=== PATIENT | female | born 1945 | race Caucasian/White ===

== ENCOUNTER → 2018-02-21 | Outpatient (CLI) | payer MEDICARE, OTHER | LOC: M.LAB 13:37 | DX: E53.1 Pyridoxine deficiency (principal) ==

== ENCOUNTER 2018-09-07 14:56 | Inpatient (IN) | payer MEDICARE, OTHER ==
[~2018-09-07] VITALS: Ht 162.6 cm; Wt 60.3 kg
[2018-09-07 15:02] VITALS: BP 145/65
[2018-09-07] MEDS ORDERED: SPIRONOLACTONE25 MG PO (15:12)
[2018-09-07] MEDS ORDERED: CYMBALTA60 MG PO (15:12)
[2018-09-07] MEDS ORDERED: COUMADIN 3 MG TA3 M1 PO (15:13)
[2018-09-07] MEDS ORDERED: SYNTHROID88 MCG PO (15:14)
[2018-09-07] MEDS ORDERED: BUMETANIDE2 M1 PO (15:14)
[2018-09-07] MEDS ORDERED: NEURONTIN600 MG PO (15:14)
[2018-09-07] MEDS ORDERED: TOPROL XL25 MG PO (15:15)
[2018-09-07] MEDS ORDERED: KLOR-CON 1010 MEQ PO (15:15)
[2018-09-07] MEDS ORDERED: CALCIUM 500 +1 EAC5 PO (15:16)
[2018-09-07] MEDS ORDERED: HYDROCODON-ACE1 EAC5 PO (15:16)
[2018-09-07] MEDS ORDERED: ZANAFLEX2 MG PO (15:16)
[2018-09-07] MEDS ORDERED: IRON325 PO (15:17)
[2018-09-07] MEDS ORDERED: ZYRTEC10 M5 PO (15:17)
[2018-09-07] MEDS ORDERED: CRESTOR5 MG PO (15:18)
[2018-09-07] MEDS ORDERED: B12INJ IM (15:19)
--- NOTE | 2018-09-07 15:35 | NUR ---
REPORT RECEIVED FROM JOHN ANNE. THIS NURSE ASSUMED PT CARE AT THIS TIME.
[2018-09-07 15:46] LABS: ABSOLUTE BASOPHILS 0.1 thou/uL (0.0-0.2); ABSOLUTE EOSINOPHILS 0.3 thou/uL (0.0-0.7); ABSOLUTE LYMPHOCYTES 1.5 thou/uL (0.8-5.3); ABSOLUTE MONOCYTES 0.7 thou/uL (0.0-1.2); ABSOLUTE NEUTROPHILS 5.7 thou/uL (1.6-8.1); BASOPHILS 0.6 %; EOSINOPHILS 3.6 %; HEMATOCRIT 44.4 % (37.0-47.0); HEMOGLOBIN 15.1 gm/dL (12.0-15.0); LYMPHOCYTES 18.2 %; MCH 32.3 pg (26.0-34.0); MCV 95.1 fL (80.0-100.0); MONOCYTES 8.9 %; NUCLEATED RBCS 0 /100WBC; PLATELET COUNT* 257 thou/uL (150-400); POLYS 68.7 %; RBC 4.66 mil/uL (4.20-5.00); RDW-CV 13.9 % (10.5-14.5); WBC 8.3 thou/uL (4.0-11.0)
--- NOTE | 2018-09-07 15:47 | NUR ---
O2 APPLIED AT 2 LITERS DUE TO O2 SAT OF 92% ON ROOM AIR. PT O2 NOW IS 95%.
[2018-09-07 16:13] LABS: ALBUMIN 3.6 g/dL (3.4-5.0); ALKALINE PHOSPHATASE 77 U/L (46-116); ANION GAP 5 mmol/L (7-16); BUN 24 mg/dL (7-18); CALCIUM 9.5 mg/dL (8.5-10.1); CHLORIDE 102 mmol/L (98-107); CO2 33 mmol/L (21-32); CREATININE 1.7 mg/dL (0.6-1.3); GLUCOSE 98 mg/dL (70-99); NT-PRO BRAIN NAT PEPTIDE 3956 pg/mL (<300); POTASSIUM 4.2 mmol/L (3.5-5.1); SGOT 19 U/L (15-37); SGPT 18 U/L (30-65); SODIUM 140 mmol/L (136-145); TOTAL BILIRUBIN 0.4 mg/dL (<0.1-1.0); TOTAL PROTEIN 7.5 g/dL (6.4-8.2); TROPONIN-I LEVEL <0.06 ng/mL (<0.06)
[2018-09-07 16:15] LABS: APTT 52.3 Seconds (25.0-31.3); INR 2.4; PROTIME 24.2 Seconds (9.20-11.50)
--- NOTE | 2018-09-07 19:01 | NUR ---
REPORT GIVEN TO JOHN CORDOVA WHO IS TO ASSUME PT CARE AT THIS TIME.
[2018-09-07 19:56] VITALS: BP 128/73
[2018-09-07 20:00] VITALS: BP 143/65
[2018-09-08] VITALS (7 sets, daily range): BP systolic 124–171; BP diastolic 55–80
--- NOTE | 2018-09-08 05:00 | NUR ---
RECEIVED REPORT FROM FUEL OPERATOR ART AT 1925. PT ARRIVED TO UNIT VIA CART AT 194. PT AAOX4, VSS, DENIES PAIN. HOURLY ROUNDING COMPLETED. SR WITH BBB ON INSURANCE COORDINATOR. CALL LIGHT WITHIN REACH.
--- NOTE | 2018-09-08 07:40 | NUR ---
AT 0650, PT C/O SOA, O2 SAT 88% ON RA. PT PLACED ON 2L NC. PT OBSERVED TO HAVE WET COUGH, CRACKLES, AND WHEEZING. DR. PINTO NOTIFIED, NEW ORDERS RECEIVED. ONE TIME DOSE LASIX ADMINISTERED/RESPIRATORY PAGED FOR BREATHING TREATMENT. REPORT GIVEN TO CEZAR LOPEZ.
--- NOTE | 2018-09-08 11:31 | NUR ---
ASSUMED PT CARE REPORT RECEIVED FROM NURSE. PT IS AOX4 SR ON MOBILE TESTER. ON 2 L NC AND SATURATION IS 95%. VSS. PT OUT OF BED TO CHAIR. NO COMPLAINT. CALL LIGHT AT REACH. WILL CONTINUE TO MONITOR
--- NOTE | 2018-09-08 13:36 | EKG ---
[place] [address] ELECTROCARDIOGRAM REPORT Name: LIS DINERO Room: [address] ADM IN [facility].#: [id number] Admission: 09/07/18 Attend Phys: Benito Yusuf Discharge: Date of : 41 Report #: [id number] THIS REPORT FOR: //name// [facility] ED Test Date: 2018-09-07 Test Time: 15:22:44 Pat Name: LIS DINERO Department: Room: [facility] Gender: F Mailroom Associate: Jered PENNINGTON : 1945 Requested By: Ely Bermudez Order Number: [id number] MD: Ibrahima Sloan Measurements Intervals [place] Rate: 87 P: 0 DE: 164 QRS: 115 QRSD: 138 T: 20 QT: 426 QTc: 513 Interpretive Statements sinus rhythm Nonspecific intraventricular conduction delay Anterolateral infarct, old No previous ECG available for comparison Electronically Signed On 09-08-2018 13:35:59 CDT by Ibrahima Sloan [email or web address] <ELECTRONICALLY SIGNED> By: Ibrahima Sloan MD, [facility] 09/08/18 1330 1522 1522 Ibrahima Sloan MD, [facility] /EPI
[2018-09-09 04:00] VITALS: BP 157/72
[2018-09-09 05:17] LABS: CALCIUM 9.2 mg/dL (8.5-10.1); CREATININE 1.3 mg/dL (0.6-1.3); POTASSIUM 3.8 mmol/L (3.5-5.1)
--- NOTE | 2018-09-09 06:51 | NUR ---
ASSUMED PT CARE AT 1930. NURSING ASSESSMENT COMPLETED AT START OF SHIFT. COMPLIANCE REPRESENTATIVE DEALER IN PLACE, TRACING SINUS RHYTHM WITH BBB. HOURLY ROUNDING COMPLETED. VS STABLE. AFEBRILE. CALL LIGHT WITHIN REACH.
[2018-09-09 08:00] VITALS: BP 144/69
--- NOTE | 2018-09-09 10:55 | NUR ---
ASSUMED PT CARE REPORT RECEIVED FROM NURSE PT IS AOX4 SR ON GOVERNMENT AFFAIRS SPECIALIST. VSS. ON RA AND SATURATION IS 94% ON RA. IV ABX GIVEN. [facility] NO COMPLAINT WILL CONTINUE TO MONITOR
[2018-09-09 11:40] VITALS: BP 159/66
[2018-09-09 16:00] VITALS: BP 173/79
[2018-09-09 19:03] LABS: INFLUENZA A ANTIGEN None Detected (None Detect); INFLUENZA B ANTIGEN None Detected (None Detect)
[2018-09-09 20:00] VITALS: BP 150/62
[2018-09-10] VITALS: BP 147/66
[2018-09-10 04:00] VITALS: BP 163/84
[2018-09-10 04:28] LABS: PROTIME 41.9 Seconds (9.20-11.50)
[2018-09-10 04:31] LABS: INR 4.1
[2018-09-10 04:48] LABS: CALCIUM 9.6 mg/dL (8.5-10.1); CREATININE 1.4 mg/dL (0.6-1.3); POTASSIUM 4.4 mmol/L (3.5-5.1)
--- NOTE | 2018-09-10 06:40 | NUR ---
ASSUMED PT CARE AT 1930. NURSING ASSESSMENT COMPLETED AT START OF SHIFT. PT ANXIOUS, C/O SOA. O2 SAT 95% ON 2L. PT REPOSITIONED, RT PAGED FOR BREATHING TREATMENT. DR. PINTO NOTIFIED FOR ANXIETY, PT REQUEST FOR SLEEPING MEDICATION AND COUGH MEDICATION. NEW ORDERS RECEIVED. MEDICATIONS ADMINISTERED. VIDEO RECORDER MECHANIC IN PLACE, TRACING SR/V PACED ON MONITOR. HOURLY ROUNDING COMPLETED. CALL LIGHT WITHIN REACH. NEGATIVE SEPSIS SCREENING THIS SHIFT.
[2018-09-10 08:00] VITALS: BP 142/70
--- NOTE | 2018-09-10 12:16 | NUR ---
Pt is A&O. Resides at home alone. 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 Independent and active. Pt uses a cane for mobility. Hx of [facility]. No hx of SNF. Pt states that she is having and Echo today. [place]. Following for disposition.
[2018-09-10 12:40] VITALS: BP 164/74
--- NOTE | 2018-09-10 14:38 | CON ---
[facility] [address] [place] [address] CONSULTATION Name: MICHELLEKWAMELIS Real Room: [address] IN .R.#: [id number] Admission: 09/07/18 Attend Phys: Benito Yusuf Discharge: Date of : 41 Report #: [id number] THIS REPORT FOR: //name// CC: Cleveland Monte MD [facility] physician/PCP Aaron Lama DATE OF SERVICE: 09/08/2018 HISTORY OF PRESENT ILLNESS: This is a 73-year-old single white female who I was asked to see in the hospital today after she complained of being short of breath. The history is obtained from the patient as there are no old records available. The patient states that she presented about 5 years ago with atrial fibrillation. She was admitted to [facility] and was seen by Dr. Riley. She apparently was cardioverted at that time. She then developed symptomatic bradycardia and he implanted a permanent Biotronik pacemaker. She apparently underwent an ablation at that time. She was placed on amiodarone, which was subsequently discontinued. She has been chronically anticoagulated. She does have a home INR monitor. She has had no bleeding problems. She denied history of coronary artery disease, congestive heart failure. She apparently had a stress test in the past. She continues to do home transtelephonic monitoring of her pacemaker. The patient states she was doing well until the past couple of weeks. She has had cough, felt fatigued, short of breath. She is coughing up yellow phlegm. She called Dr. Monte who gave her a Z-CLARISSE. However, she continued to be short of breath and coughing. She came to the Emergency Room yesterday and was admitted. She denied any chest pain, palpitation, syncope, edema. PAST MEDICAL HISTORY: She has had previous back surgery, cholecystectomy, appendectomy. She has a history of hypertension, hyperlipidemia. No history of diabetes. MEDICATIONS: Consists of Bumex that she takes as needed, Cymbalta, Neurontin, Synthroid, metoprolol, Crestor, spironolactone, warfarin. ALLERGIES: She has intolerance to CODEINE. FAMILY HISTORY: Her father had heart disease. SOCIAL HISTORY: She is , lives by herself in [place], used to live in [place]. 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 Quit smoking 6 years ago. Occasionally drinks alcohol. REVIEW OF SYSTEMS: She has had no history of stroke, asthma, peptic ulcer disease, liver disease. She has history of chronic kidney disease, no cancer. No psychiatric illness. [place] [address] CONSULTATION Name: MICHELLELIS PUENTE Real Room: [address] IN .R.#: [id number] Admission: 09/07/18 Attend Phys: Benito Yusuf Discharge: Date of : 41 Report #: [id number] PHYSICAL EXAMINATION: GENERAL: Revealed an elderly female lying in bed. She appeared in no distress. VITAL SIGNS: She had a blood pressure of 120/80, pulse is 80, she is afebrile. HEENT: She was anicteric, pinkish conjunctivae pink. Mucous membranes moist. NECK: Veins do not appear distended. No carotid bruits. CHEST: Revealed expiratory wheezes with rhonchi in both lung huggins. CARDIAC: Regular rate and rhythm. Well-healed incision of the pacemaker in the left subclavicular area. ABDOMEN: Soft. EXTREMITIES: Had no pitting edema. Dorsalis pedis pulse 2+ bilaterally. SKIN: Warm, dry. NEUROLOGIC: Nonfocal. LYMPH: No adenopathy. MUSCULOSKELETAL: No joint effusion. LABORATORY DATA: ECG on admission showed a ventricular paced rhythm. Her underlying rhythm appears to represent atrial fibrillation. Her chest x-ray in the emergency room yesterday showed basilar bilateral infiltrates, small effusions. BUN 24, creatinine 1.7. BNP 3956. Troponin 0.06. INR 2.4. White blood cell count 8.3, hemoglobin 15.1. IMPRESSION AND RECOMMENDATIONS: 1. Bronchitis. 2. Atrial fibrillation. The patient chronically anticoagulated. 3. Status post pacemaker insertion. 4. Hypertension. The patient is on a beta haromny. 5. Hyperlipidemia. The patient is on a statin drug. 6. Chronic kidney disease. <ELECTRONICALLY SIGNED> By: Ibrahima Sloan MD, [facility] 09/10/18 1438 1029 [id number] Sloan MD, FAC /nt
[2018-09-10 17:15] VITALS: BP 145/68
--- NOTE | 2018-09-10 17:50 | NUR ---
PT AOX4 AFLUTTER ON MANAGER FINANCIAL REPORTING. ON RA FOR MOST OF THE DAY. WALKED IN HALLWAY THIS PM WITH NURSE ASSISTANCE. OXYGEN SATURATION REMAINS BETWEEN 89 AND 92 % WHILE ACTIVELY WALKING. NO COUGHING TODAY TESSALON PILL HAS BEEN GIVEN. UP TO CHAIR. IV ABX GIVEN THIS AM. ECHO, CHEST XRAY DONE DURING DAY.
[2018-09-10 20:00] VITALS: BP 180/81
[2018-09-11] VITALS: BP 168/73
[2018-09-11 04:00] VITALS: BP 149/75
[2018-09-11 05:35] LABS: PROTIME 67.3 Seconds (9.20-11.50)
[2018-09-11 05:49] LABS: INR 6.7
--- NOTE | 2018-09-11 06:49 | NUR ---
ASSUMED PT CARE AT 1930. NURSING ASSESSMENT COMPLETED AT START OF SHIFT. PT VOICED NO CONCERNS THIS SHIFT. ACID WASHER OPERATOR IN PLACE, TRACING SINUS RHYTHM/V PACED. HOURLY ROUNDING COMPLETED. CALL LIGHT WITHIN REACH.
[2018-09-11 09:04] VITALS: BP 172/76
--- NOTE | 2018-09-11 10:10 | 2DMMODE ---
[place] [address] 2 D/M-MODE ECHOCARDIOGRAM Name: BARLIS L Room: [address] IN [facility]#: [id number] Admission: 09/07/18 Attend Phys: Aaron Lama Discharge: Date of : 41 Date of Service: 09/10/18 1323 Report #: [id number] THIS REPORT FOR: //name// APPROVED REPORT Study performed: 09/10/2018 10:22:21 EXAM: Comprehensive 2D, Doppler, and color-flow Echocardiogram Patient Location: In-Patient Room #: [facility] BSA: 1.64 HR: 89 bpm BP: 142/70 mmHg Other Information Study Quality: Good Indications Atrial Fibrillation 2D Dimensions IVSd: 11.35 (7-11mm) LVOT Diam: 17.24 (18-24mm) LVDd: 37.99 mm PWd: 8.57 (7-11mm) Ascending Ao: 31.38 (22-36mm) LVDs: 26.48 (25-40mm) Aortic Root: 20.36 mm Aortic Valve AoV Peak Francis.: 1.06 m/s AO Peak Gr.: 4.46 mmHg LVOT Max P.60 mmHg AO Mean Gr.: 2.45 mmHg LVOT Mean P.36 mmHg LVOT Max V: 0.81 m/s AO V2 VTI: 21.70 cm LVOT Mean V: 0.54 m/s EMILY (VTI): 1.85 cm2 LVOT V1 VTI: 17.16 cm Mitral Valve E/A Ratio: 3.05 MV Decel. Time: 105.67 ms MV E Max Francis.: 0.87 m/s MV PHT: 30.64 ms MVA (PHT): 7.18 cm2 TDI E/Lateral E': 5.80 E/Medial E': 8.70 [place] [address] 2 D/M-MODE ECHOCARDIOGRAM Name: LIS DINERO Real Room: [address] IN [facility].#: [id number] Admission: 09/07/18 Attend Phys: Aaron Lama Discharge: Date of : 41 Date of Service: 09/10/18 1323 Report #: [id number] Medial E' Francis.: 0.10 m/s Lateral E' Francis.: 0.15 m/s Pulmonary Valve PV Peak Francis.: 0.96 m/s PV Peak Gr.: 3.65 mmHg Tricuspid Valve RAP Estimate: 5.00 mmHg TR Peak Gr.: 39.98 mmHg RVSP: 44.98 mmHg PA Pressure: 44.98 mmHg Left Ventricle The left ventricle is normal size. There is normal LV segmental wall motion. There is normal left ventricular wall thickness. Left ventricular systolic function is normal. The left ventricular ejection fraction is within the normal range. LVEF is 55-60%. The left ventricular diastolic function is normal. Right Ventricle The right ventricle is normal size. The right ventricular systolic function is normal. Pacemaker lead is present in the right ventricle. Atria Left atrium is mildly dilated. Pacemaker lead is present in the right atrium. Aortic Valve The Aortic valve is sclerotic. No aortic regurgitation is present. There is no aortic valvular stenosis. Mitral Valve The mitral valve is normal in structure. Mild mitral regurgitation. No evidence of mitral valve stenosis. Tricuspid Valve The tricuspid valve is normal in structure. Mild tricuspid regurgitation. estimated pa pressure 40 mm Hg Pulmonic Valve The pulmonary valve is normal in structure. Trace pulmonic regurgitation. Great Vessels The aortic root is normal in size. IVC is normal in size and collapses >50% [place] [address] 2 D/M-MODE ECHOCARDIOGRAM Name: LIS DINERO Room: [address] IN [facility].#: [id number] Admission: 09/07/18 Attend Phys: Aaron Lama Discharge: Date of : 41 Date of Service: 09/10/18 1323 Report #: [id number] Pericardium There is no pericardial effusion. <Conclusion> LVEF is 55-60%. Left atrium is mildly dilated. The Aortic valve is sclerotic. Mild mitral regurgitation. <ELECTRONICALLY SIGNED> By: Ibrahima Sloan MD, [facility] 09/10/18 1323 1323 1323 Ibrahima Sloan MD, FAC /INF
[2018-09-11 13:30] VITALS: BP 132/73
--- NOTE | 2018-09-11 16:30 | NUR ---
PT PROGRESSING TOWARDS GOALS THIS SHIFT. PT REPORTED TO PHYSICIAN SHE DID NOT FEEL WELL ENOUGH FOR DC HOME TODAY. ANTICIPATE DC HOME TOMORROW. PRN TYLENOL ADMINISTERED FOR HEADACHE AND CHEST WALL PAIN FROM COUGHING. PT CHANGED TO MED/SURG STATUS THIS SHIFT. NO OTHER CONCERNS AT THIS TIME. CLWR. WCTM.
[2018-09-11 17:28] VITALS: BP 156/73
[2018-09-11 20:00] VITALS: BP 144/69
[2018-09-12] VITALS: BP 150/72
[2018-09-12 05:48] LABS: PROTIME 46.8 Seconds (9.20-11.50)
[2018-09-12 05:58] LABS: INR 4.6
--- NOTE | 2018-09-12 07:16 | NUR ---
ASSUMED PT CARE AT 1930. NURSING ASSESSMENT COMPLETED AT START OF SHIFT. PT VOICED NO CONCERNS. PT MED SURG STATUS. HOURLY ROUNDING COMPLETED. PT VOICE SHE IS INTERESTED IN HAVING HOME HEALTH SET UP BEFORE DISCHARGE. CASE MANAGEMENT CONSULTED.
[2018-09-12 08:00] VITALS: BP 170/83
[2018-09-12 10:25] VITALS: BP 170/83
[2018-09-12] MEDS ORDERED: LOPRESSOR25 PO (11:56)
[2018-09-12] MEDS ORDERED: KEFLEX500 M1 PO (11:56)
[2018-09-12] MEDS ORDERED: PREDNISONE 10 M10 MG PO (11:56)
[2018-09-12 12:24] VITALS: BP 170/83
--- NOTE | 2018-09-12 12:31 | NUR ---
Pt discharging to home today, faxed HH orders to [facility] per Pt's request. Family will provide dc transportation.
[2018-09-12] MEDS ORDERED: TYLENOL325 MG PO (12:47)
[2018-09-12] MEDS ORDERED: CEPACOL SORE T1 EAC8 PO (12:48)
[2018-09-12] MEDS ORDERED: COLACE100 MG PO (12:49)
--- NOTE | 2018-09-12 15:17 | NUR ---
PT AOX4 MEDSURG STATUS. ON RA SATURATION 95%. UP AD DELPHINE. VOMIT THIS AM. ZOFRAN GIVEN. NO MORE NAUSEAUS AFTER ZOFRFAN. DISCHARGE ORDERD IN. PT TO LEAVE TO [facility] WITH HOME HEALTH. DISCHARGE INSTRUCTIONS GIVEN.PT HAS NO MORE QUESTIONS. PT LEFT UNIT AT 1520 VIA WHEELCHAIR ACCOMPANIED BY DAUGHTER IN LAW
== END 2018-09-12 12:40 | disposition home health service (06) | DRG 177 ==
LOC: M.ERS 14:56 → M.TBA-ER 16:55 → M.2W 16:55
PROVIDERS: Internal Medicine Cardiovascular Disease; Nurse Practitioner; ADMIT Internal Medicine
DX: J15.6 Pneumonia due to other Gram-negative bacteria (principal); I50.43 Acute on chronic combined systolic (congestive) and diastolic (congestive) heart failure; J44.0 Chronic obstructive pulmonary disease with (acute) lower respiratory infection; I13.0 Hypertensive heart and chronic kidney disease with heart failure and stage 1 through stage 4 chronic kidney disease, or unspecified chronic kidney disease; J44.1 Chronic obstructive pulmonary disease with (acute) exacerbation; G62.9 Polyneuropathy, unspecified; I48.91 Unspecified atrial fibrillation; E78.5 Hyperlipidemia, unspecified; J40 Bronchitis, not specified as acute or chronic; N18.9 Chronic kidney disease, unspecified; I49.5 Sick sinus syndrome; Z88.2 Allergy status to sulfonamides; Z79.899 Other long term (current) drug therapy; Z79.01 Long term (current) use of anticoagulants; Z95.0 Presence of cardiac pacemaker; Z90.89 Acquired absence of other organs; Z90.49 Acquired absence of other specified parts of digestive tract; Z87.891 Personal history of nicotine dependence; Z82.49 Family history of ischemic heart disease and other diseases of the circulatory system

== ENCOUNTER 2018-10-15 19:11 | Inpatient (IN) | payer MEDICARE, OTHER ==
[~2018-10-15] VITALS: Ht 162.6 cm; Wt 60.6 kg
[~2018-10-15 19:11] MED LIST: B12INJ IM; BUMETANIDE2 M1 PO; CALCIUM 500 +1 EAC5 PO; CEPACOL SORE T1 EAC8 PO; COLACE100 MG PO; COUMADIN 3 MG TA3 M1 PO; CRESTOR5 MG PO; CYMBALTA60 MG PO; HYDROCODON-ACE1 EAC5 PO; IRON325 PO; KEFLEX500 M1 PO; KLOR-CON 1010 MEQ PO; LOPRESSOR25 PO; NEURONTIN600 MG PO; PREDNISONE 10 M10 MG PO; SPIRONOLACTONE25 MG PO; SYNTHROID88 MCG PO; TOPROL XL25 MG PO; TYLENOL325 MG PO; ZANAFLEX2 MG PO; ZYRTEC10 M5 PO
[2018-10-15 19:29] VITALS: BP 112/54
[2018-10-15 21:22] LABS: BE -1.5 mmol/L (-2 to +3); PCO2 37.2 mmHg (35.0-45.0); PO2 70.2 mmHg (75.0-100.0); pH 7.405 (7.340-7.450)
[2018-10-15 21:29] LABS: HEMOGLOBIN 12.7 gm/dL (12.0-15.0); MCH 31.9 pg (26.0-34.0); MCHC 32.6 g/dL (28.0-37.0); MCV 97.8 fL (80.0-100.0); MPV 8.4 fl. (7.2-11.1); NUCLEATED RBCS 0 /100WBC; PLATELET COUNT* 278 thou/uL (150-400); RBC 3.99 mil/uL (4.20-5.00); RDW-CV 15.4 % (10.5-14.5); WBC 12.6 thou/uL (4.0-11.0)
[2018-10-15 21:39] LABS: ANION GAP 12 mmol/L (7-16); BUN 39 mg/dL (7-18); CALCIUM 9.7 mg/dL (8.5-10.1); CHLORIDE 94 mmol/L (98-107); CO2 24 mmol/L (21-32); CREATININE 1.9 mg/dL (0.6-1.3); GLUCOSE 109 mg/dL (70-99); POTASSIUM 4.6 mmol/L (3.5-5.1); SODIUM 130 mmol/L (136-145)
[2018-10-15 21:46] LABS: APTT 66.2 Seconds (25.0-31.3)
[2018-10-15 21:47] LABS: INR 4.6; PROTIME 46.9 Seconds (9.20-11.50)
[2018-10-15 21:51] LABS: ALKALINE PHOSPHATASE 92 U/L (46-116); MAGNESIUM 1.8 mg/dL (1.8-2.4); SGOT 50 U/L (15-37); SGPT 31 U/L (30-65); TOTAL BILIRUBIN 0.7 mg/dL (<0.1-1.0); TOTAL PROTEIN 7.3 g/dL (6.4-8.2); TROPONIN-I LEVEL <0.06 ng/mL (<0.06)
[2018-10-15 22:00] LABS: URINE BILIRUBIN NEGATIVE (Negative); URINE BLOOD 1+ (Negative); URINE CLARITY CLEAR; URINE COLOR YELLOW; URINE GLUCOSE-RANDOM NEGATIVE (Negative); URINE KETONES NEGATIVE (Negative); URINE LEUKOCYTES-REFLEX 1+ (Negative); URINE NITRITE-REFLEX NEGATIVE (Negative); URINE PROTEIN NEGATIVE (Negative); URINE SPECIFIC GRAVITY <= 1.005 (1.005-1.030); URINE UROBILINOGEN 0.2 E.U./dl (0.2-1.0)
[2018-10-15 22:08] LABS: ABSOLUTE LYMPHOCYTES 0.8 thou/uL (0.8-5.3); ABSOLUTE MONOCYTES 0.5 thou/uL (0.0-1.2); ABSOLUTE NEUTROPHILS 11.3 thou/uL (1.6-8.1)
[2018-10-15 22:10] LABS: ANISOCYTOSIS Occasional; PLATELET ESTIMATE ADEQUATE
[2018-10-15 22:11] LABS: SQUAMOUS 4-10 Moderate /LPF (0-3); URINE WBC-REFLEX >25 Many /HPF (0-5)
[2018-10-15 22:12] LABS: BACTERIA-REFLEX None Seen /HPF (None Seen); CRYSTALS None Seen /LPF (None Seen); HYALINE CASTS 0-3 Few /LPF (None Seen); URINE RBC 0-2 Rare /HPF (0-2)
[2018-10-16 03:22] VITALS: BP 143/61
--- NOTE | 2018-10-16 04:56 | NUR ---
PT IS RESTING QUIETLY AT THIS TIME IN NO AUCTE DISTRESS. O2 2L BNC INTACT. MONITORS INTACT WITH ALARMS SET. NO ACUTE CHANGES DURING THIS SHIFT WILL CONTINUE TO MONITOR
--- NOTE | 2018-10-16 08:48 | NUR ---
PT GIVEN A BREAKFAST TRAY.
[2018-10-16 11:06] LABS: INR 4.2; PROTIME 42.5 Seconds (9.20-11.50)
--- NOTE | 2018-10-16 15:40 | EKG ---
[place] [address] ELECTROCARDIOGRAM REPORT Name: LIS DINERO Room: [place] [address] ADM IN [facility].#: [id number] Admission: 10/15/18 Attend Phys: Marialuisa Flores MD Discharge: Date of : 41 Report #: [id number] THIS REPORT FOR: //name// [facility] ED Test Date: 2018-10-15 Test Time: 21:00:40 Pat Name: LIS DINERO Department: Room: [facility] Gender: F Real Estate Services Coordinator: [place] : 1945 Requested By: Trisha Bowen Order Number: [id number] MD: Kayode Avitia Measurements Intervals [place] Rate: 81 P: 0 MT: 186 QRS: 126 QRSD: 127 T: 77 QT: 406 QTc: 472 Interpretive Statements Ventricular-paced complexes No further analysis attempted due to paced rhythm Baseline wander in lead(s) II,III,aVF Compared to ECG 09/07/2018 15:22:44 Sinus rhythm no longer present Intraventricular conduction delay no longer present Myocardial infarct finding no longer present Electronically Signed On 10-16-2018 15:40:28 CDT by Kayode Avitia [email or web address] <ELECTRONICALLY SIGNED> By: Kayode Aivtia MD, [facility] 10/16/18 1540 2100 99 Kayode Avitia MD, [facility] /EPI
[2018-10-16 20:25] VITALS: BP 144/65
[2018-10-16 21:15] VITALS: BP 157/57
[2018-10-17] VITALS: BP 162/60
--- NOTE | 2018-10-17 02:55 | NUR ---
ASSUMED CARE OF PT AT 2030 FROM THE ER. PT IS ALERT AND ORIENTED. VSS. PHILLIP. PT WAS COMPLAINING OF SOA. LUNG SOUNDS ARE CRACKLES AND WHEEZING. PT WAS GIVEN IV LASIX AND IMPROVED SLIGHTLY. PT IN IN A FIB. PT IS SLEEPING QUIETLY IN BED. RESPIRATIONS ARE EVEN AND NONLABORED. WILL CONTINUE TO MONITOR PT.
[2018-10-17 04:00] VITALS: BP 121/51
[2018-10-17 05:45] LABS: PROTIME 47.5 Seconds (9.20-11.50)
[2018-10-17 05:59] LABS: INR 4.7
[2018-10-17 07:05] VITALS: BP 143/62
--- NOTE | 2018-10-17 11:11 | NUR ---
Pt is A&O. Recently hospitalized here a few weeks ago, dc to home with Yoanna DUMOTN. Pt states that she has not slept well for the past few days, d/t to not being able to breath, Pt reports that they lasix is helping with that now. Pt uses a cane for mobility. Has a home neb. No hx of SNF. CM spoke with Pt's dpoa, whom is out of the country, Pt's son is working out of town, DPOA is available via phone if needed. Pt unsure of any dc needs, she wants to speak with the Drs first. Following.
[2018-10-17 11:57] VITALS: BP 130/62
--- NOTE | 2018-10-17 15:18 | NUR ---
INITIAL ASSESSMENT COMPLETED CHARTED. VSS. PT AFIB ON MONITOR. PT DENIES PAIN. MEDS GIVEN PER EMAR. HOURLY ROUNDING IN PLACE FOR PT SAFETY. CLWR.
[2018-10-17 15:54] VITALS: BP 147/69
[2018-10-17 20:30] VITALS: BP 127/59
[2018-10-18] VITALS: BP 149/71
[2018-10-18 03:53] LABS: ABSOLUTE LYMPHOCYTES 0.8 thou/uL (0.8-5.3); ABSOLUTE MONOCYTES 0.4 thou/uL (0.0-1.2); ABSOLUTE NEUTROPHILS 11.4 thou/uL (1.6-8.1); BASOPHILS 0.2 %; HEMATOCRIT 38.5 % (37.0-47.0); HEMOGLOBIN 12.4 gm/dL (12.0-15.0); LYMPHOCYTES 6.6 %; MCH 31.3 pg (26.0-34.0); MCHC 32.2 g/dL (28.0-37.0); MONOCYTES 2.8 %; MPV 7.9 fl. (7.2-11.1); NUCLEATED RBCS 0 /100WBC; PLATELET COUNT* 300 thou/uL (150-400); POLYS 90.4 %; RBC 3.97 mil/uL (4.20-5.00); WBC 12.7 thou/uL (4.0-11.0)
[2018-10-18 03:56] LABS: INR 4.1; PROTIME 41.5 Seconds (9.20-11.50)
[2018-10-18 04:00] VITALS: BP 158/75
[2018-10-18 04:02] LABS: CALCIUM 9.4 mg/dL (8.5-10.1); CREATININE 1.2 mg/dL (0.6-1.3)
--- NOTE | 2018-10-18 06:29 | NUR ---
VITALS STABLE, AFEBRILE. PATIENT ABLE TO SLEEP THROUGH MOST OF THE NIGHT. NSR THROUGH THE NIGHT. PATIENT HAD A SHORT EPISODE OF VTACH (8 OF THEM) AROUND 0400. STRIP PRINTED AND IN CHART. DENIES PAIN. OTHERWISE UNEVENTFUL NIGHT. CALL LIGHT WITHIN REACH FOR SKIN INTEGRITY.
[2018-10-18 07:00] VITALS: BP 151/69
--- NOTE | 2018-10-18 09:25 | NUR ---
INITAL ASSESSMENT COMPLETED CHARTED. VSS. PT MORE ALERT THIS A.M. TRACING SR ON MONITOR. PT DENIES PAIN. PT DENIES ANY FURTHER NEEDS A THIS TIME. HOURLY ROUNDING IN PLACE FOR PT SAFETY. CLWR.
[2018-10-18 12:08] VITALS: BP 120/50
--- NOTE | 2018-10-18 15:44 | 2DMMODE ---
[place] [address] 2 D/M-MODE ECHOCARDIOGRAM Name: LIS DINERO Real Room: [facility] ADM IN [facility]#: [id number] Admission: 10/15/18 Attend Phys: Marialuisa Flores, Discharge: Date of : 41 Date of Service: 10/18/18 1544 Report #: [id number] THIS REPORT FOR: //name// APPROVED REPORT Study performed: 10/18/2018 14:25:31 EXAM: Limited 2D, Doppler, and color-flow Echocardiogram Patient Location: In-Patient Room #: [facility] Status: routine BSA: 1.66 HR: 80 bpm BP: 120/50 mmHg Rhythm: NSR Other Information Study Quality: Good Indications Dyspnea cough, heart failure 2D Dimensions IVSd: 11.90 (7-11mm) LVDd: 40.73 mm PWd: 9.50 (7-11mm) LVDs: 21.62 (25-40mm) Aortic Root: 28.91 mm Volumes Left Atrial Volume (Systole) LA ESV Index: 42.40 mL/m2 Tricuspid Valve TR Peak Gr.: 42.28 mmHg Left Ventricle The left ventricle is normal size. There is normal LV segmental wall motion. There is normal left ventricular wall thickness. The left ventricular systolic function is normal. The left ventricular ejection fraction is within the normal range. LVEF is 55-60%. Right Ventricle The right ventricle is normal size. The right ventricular systolic function is normal. Pacemaker lead is present in the right ventricle. [address] [address] 2 D/M-MODE ECHOCARDIOGRAM Name: LIS DINERO Room: [address] IN [facility]#: [id number] Admission: 10/15/18 Attend Phys: Marialuisa Flores, Discharge: Date of : 41 Date of Service: 10/18/18 1544 Report #: [id number] Atria Left atrium is moderately dilated. Right atrium is mildly dilated. Aortic Valve Mild aortic valve sclerosis. No aortic regurgitation is present. There is no aortic valvular stenosis. Mitral Valve The mitral valve is normal in structure. Mild mitral regurgitation. Tricuspid Valve The tricuspid valve is normal in structure. Mild to moderate tricuspid regurgition Mild pulmonary hypertension. Pulmonic Valve The pulmonary valve is normal in structure. Great Vessels The aortic root is normal in size. IVC is normal in size and collapses >50% with inspiration. Pericardium There is no pericardial effusion. <Conclusion> The left ventricle is normal size. There is normal left ventricular wall thickness. The left ventricular systolic function is normal. The left ventricular ejection fraction is within the normal range. LVEF is 55-60%. The right ventricle is normal size. Left atrium is moderately dilated. Right atrium is mildly dilated. Mild aortic valve sclerosis. No aortic regurgitation is present. There is no aortic valvular stenosis. The mitral valve is normal in structure. Mild mitral regurgitation. The tricuspid valve is normal in structure. Mild to moderate tricuspid regurgition Mild pulmonary hypertension. IVC is normal in size and collapses >50% [place] [address] 2 D/M-MODE ECHOCARDIOGRAM Name: LIS DINERO Room: [address] IN [facility].#: [id number] Admission: 10/15/18 Attend Phys: Marialuisa Flores, Discharge: Date of : 41 Date of Service: 10/18/181543 Report #: [id number] There is no pericardial effusion. There is normal LV segmental wall motion. Pacemaker lead is present in the right ventricle. <ELECTRONICALLY SIGNED> By: Yuniel Crockett MD, FACC 10/18/18 1544 43 43 Yuniel Crockett MD, FACC /INF
--- NOTE | 2018-10-18 15:48 | NUR ---
PT HAS BEEN TITRATED TO ROOM AIR WITH O2 SATS AT 93%
[2018-10-18 16:27] VITALS: BP 127/57
[2018-10-18 20:20] VITALS: BP 142/67
[2018-10-19] VITALS: BP 157/74
[2018-10-19 04:00] VITALS: BP 144/65
[2018-10-19 04:28] LABS: INR 3.9; PROTIME 39.2 Seconds (9.20-11.50)
--- NOTE | 2018-10-19 05:47 | NUR ---
PT CARE ASSUMED AT 1930. SAT MAINTAINED IN RA. ALERT AND ORIENTED X4. C/O PAIN, MEDICATION GIVEN PER EMAR. CALL LIGHT WITHIN REACH AND BED IN LOW POSITION. HOURLY ROUNDING DONE FOR PT SAFETY.
[2018-10-19 07:30] VITALS: BP 147/71
[2018-10-19 11:30] VITALS: BP 146/77
--- NOTE | 2018-10-19 13:31 | NUR ---
ORDERS RECEIVED FOR DC HOME WITH HH. [facility] AND WANTS TO CONTINUE WITH THEM. CALLED AND [facility]. PT STATES HER FRIENDS ARE COMING TO GET HER TO TAKE HER HOME AND GET SETTLED. FAMILY IS OUT OF TOWN BUT SHOULD BE HOME THIS WEEKEND. PT DENIES OTHER NEEDS
[2018-10-19] MEDS ORDERED: LEVAQUIN 500 M500 M2 PO (13:59)
[2018-10-19] MEDS ORDERED: PREDNISONE 10 M10 MG PO (14:04)
== END 2018-10-19 14:46 | disposition home health service (06) | DRG 682 ==
LOC: M.ERS 19:11 → M.TBA-ER 22:44 → M.2W 10-16 19:58
PROVIDERS: Internal Medicine; Personal Emergency Response Attendant; ADMIT Internal Medicine
DX: N17.0 Acute kidney failure with tubular necrosis (principal); I50.33 Acute on chronic diastolic (congestive) heart failure; J44.1 Chronic obstructive pulmonary disease with (acute) exacerbation; N39.0 Urinary tract infection, site not specified; R65.10 Systemic inflammatory response syndrome (SIRS) of non-infectious origin without acute organ dysfunction; E87.70 Fluid overload, unspecified; R00.0 Tachycardia, unspecified; I87.2 Venous insufficiency (chronic) (peripheral); R06.03 Acute respiratory distress; I11.0 Hypertensive heart disease with heart failure; I48.2 Chronic atrial fibrillation; G62.9 Polyneuropathy, unspecified; Z95.0 Presence of cardiac pacemaker; Z90.49 Acquired absence of other specified parts of digestive tract; Z88.6 Allergy status to analgesic agent; Z88.2 Allergy status to sulfonamides; Z87.891 Personal history of nicotine dependence; Z79.899 Other long term (current) drug therapy

== ENCOUNTER → 2018-10-24 | Outpatient (CLI) | payer MEDICARE, OTHER ==
[~2018-10-24] MED LIST changes: -BUMETANIDE2 M1 PO; +BUMEX2 MG PO; +LEVAQUIN 500 M500 M2 PO
[2018-10-24 13:12] LABS: INR 1.2; PROTIME 12.1 Seconds (9.20-11.50)
[2018-10-24 13:34] LABS: ANION GAP 5 mmol/L (7-16); BUN 37 mg/dL (7-18); CALCIUM 9.3 mg/dL (8.5-10.1); CHLORIDE 98 mmol/L (98-107); CHOLESTEROL 171 mg/dL (<200); CO2 36 mmol/L (21-32); CREATININE 1.9 mg/dL (0.6-1.3); GLUCOSE 128 mg/dL (70-99); HDL CHOLESTEROL 74 mg/dL (>40); LDL CHOLESTEROL 80 mg/dL (<100); NT-PRO BRAIN NAT PEPTIDE 4085 pg/mL (<300); POTASSIUM 3.9 mmol/L (3.5-5.1); SERUM ASSESSMENT Clear; SODIUM 139 mmol/L (136-145); TC:HDL 2.3 Ratio (Not establshd); TRIGLYCERIDE 89 mg/dL (<150); VLDL 18 mg/dL (<40)
== END ==
LOC: M.LAB 12:45
PROVIDERS: Registered Nurse
DX: I50.32 Chronic diastolic (congestive) heart failure (principal); E78.1 Pure hyperglyceridemia; E03.9 Hypothyroidism, unspecified

== ENCOUNTER 2018-10-25 17:08 | Emergency (ER) | payer MEDICARE, OTHER ==
[~2018-10-25] VITALS: Ht 162.6 cm; Wt 57.6 kg
[2018-10-25 18:53] VITALS: BP 136/85
--- NOTE | 2018-10-26 14:03 | EKG ---
[place] [address] ELECTROCARDIOGRAM REPORT Name: BARLIS Room: [facility]#: [id number] Admission: 10/25/18 Attend Phys: Discharge: 10/25/18 Date of : 41 Report #: [id number] THIS REPORT FOR: //name// [facility] ED Test Date: 2018-10-25 Test Time: 17:32:33 Pat Name: LIS DINERO Department: Room: Gender: F Prepress Manager: : 1945 Requested By: Trisha Bowen Order Number: [id number] MD: Ibrahima Sloan Measurements Intervals [place] Rate: 84 P: VT: QRS: 132 QRSD: 126 T: 39 QT: 384 QTc: 454 Interpretive Statements Afib/flut and V-paced complexes No further analysis attempted due to paced rhythm Compared to ECG 10/15/2018 21:00:40 No significant changes Electronically Signed On 10-26-2018 14:03:17 CDT by Ibrahima Sloan [email or web address] <ELECTRONICALLY SIGNED> By: Ibrahima Sloan MD, [facility] 10/26/18 1406 1732 1732 Ibrahima Sloan MD, [facility] /EPI
== END 2018-10-25 18:54 | disposition home or self-care (01) ==
LOC: M.ERS 17:08
DX: R42 Dizziness and giddiness (principal); J44.9 Chronic obstructive pulmonary disease, unspecified; G62.9 Polyneuropathy, unspecified; I11.0 Hypertensive heart disease with heart failure; I50.9 Heart failure, unspecified; I48.91 Unspecified atrial fibrillation; Z95.0 Presence of cardiac pacemaker; Z88.5 Allergy status to narcotic agent; Z88.2 Allergy status to sulfonamides; Z90.49 Acquired absence of other specified parts of digestive tract

== ENCOUNTER → 2018-11-26 | Outpatient (CLI) | payer MEDICARE, OTHER | LOC: M.RAD 11:00 | DX: R13.19 Other dysphagia (principal) ==

== ENCOUNTER → 2018-12-20 | Outpatient (CLI) | payer MEDICARE, OTHER | LOC: M.LAB 12:59 | DX: E53.1 Pyridoxine deficiency (principal) ==

== ENCOUNTER 2020-10-06 07:57 | Inpatient (IN) | payer MEDICARE, OTHER ==
[~2020-10-06] VITALS: Ht 162.6 cm; Wt 54.4 kg
[2020-10-06 08:06] VITALS: BP 128/51
[2020-10-06 08:18] LABS: ABSOLUTE EOSINOPHILS 0.3 thou/uL (0.0-0.7); ABSOLUTE LYMPHOCYTES 2.3 thou/uL (0.8-5.3); ABSOLUTE MONOCYTES 0.6 thou/uL (0.0-1.2); ABSOLUTE NEUTROPHILS 6.1 thou/uL (1.6-8.1); BASOPHILS 0.4 %; EOSINOPHILS 3.4 %; HEMATOCRIT 44.4 % (37.0-47.0); HEMOGLOBIN 14.9 gm/dL (12.0-15.0); LYMPHOCYTES 24.7 %; MCH 32.9 pg (26.0-34.0); MCHC 33.6 g/dL (28.0-37.0); MCV 97.7 fL (80.0-100.0); MPV 7.9 fl. (7.2-11.1); NUCLEATED RBCS 0 /100WBC; PLATELET COUNT* 292 thou/uL (150-400); POLYS 65.5 %; RBC 4.55 mil/uL (4.20-5.00); RDW-CV 14.6 % (10.5-14.5); WBC 9.3 thou/uL (4.0-11.0)
[2020-10-06 08:26] LABS: CALCIUM 9.6 mg/dL (8.5-10.1); CREATININE 1.2 mg/dL (0.6-1.3); POTASSIUM 5.3 mmol/L (3.5-5.1)
[2020-10-06 08:37] LABS: ALBUMIN 3.8 g/dL (3.4-5.0); TOTAL BILIRUBIN 0.8 mg/dL (<0.1-1.0); TOTAL PROTEIN 8.1 g/dL (6.4-8.2)
[2020-10-06 09:58] LABS: URINE BILIRUBIN NEGATIVE (Negative); URINE BLOOD NEGATIVE (Negative); URINE CLARITY CLEAR; URINE COLOR YELLOW; URINE GLUCOSE-RANDOM NEGATIVE (Negative); URINE KETONES NEGATIVE (Negative); URINE LEUKOCYTES NEGATIVE (Negative); URINE NITRITE NEGATIVE (Negative); URINE PROTEIN NEGATIVE (Negative); URINE SPECIFIC GRAVITY 1.015 (1.005-1.030); URINE UROBILINOGEN 0.2 E.U./dl (0.2-1.0)
[2020-10-06 10:03] LABS: CALCIUM 10.3 mg/dL (8.5-10.1); CREATININE 1.3 mg/dL (0.6-1.3)
[2020-10-06 10:11] LABS: INR 3.2; PROTIME 31.3 Seconds (9.20-11.50)
--- NOTE | 2020-10-06 12:14 | EKG ---
[place] [address] ELECTROCARDIOGRAM REPORT Name: LIS DINERO Room: [place] [address] ADM IN [facility].#: [id number] Admission: 10/06/20 Attend Phys: Jazzy Escobar Discharge: Date of : 41 Date of Service: 10/06/20812 Report #: [id number] THIS REPORT FOR: //name// [facility] ED Test Date: 2020-10-06 Test Time: 08:13:44 Pat Name: LIS DINERO Department: Room: [facility] Gender: F Sorting Supervisor: SRINIVAS : 1945 Requested By: Zeus Luther Order Number: [id number] MD: Kayode Avitia Measurements Intervals [place] Rate: 64 P: 0 WV: QRS: 130 QRSD: 134 T: 8 QT: 462 QTc: 477 Interpretive Statements Atrial fibrillation with intermittent ventricular pacing compared to ECG 10/25/2018 17:32:33 No significant changes noted Electronically Signed On 10-06-2020 12:14:33 CDT by Kyaode Avitia [email or web address] <ELECTRONICALLY SIGNED> By: Kayode Avitia MD, [facility] 10/06/20 1214 2 2 Kayode Avitia MD, [facility] /EPI
[2020-10-06 13:21] VITALS: BP 159/67
[2020-10-06 16:00] VITALS: BP 159/61
[2020-10-06 20:20] VITALS: BP 137/45
[2020-10-07] VITALS: BP 137/53
[2020-10-07 04:00] VITALS: BP 146/56
[2020-10-07 04:06] LABS: HEMATOCRIT 39.8 % (37.0-47.0); HEMOGLOBIN 13.3 gm/dL (12.0-15.0); MCH 32.7 pg (26.0-34.0); MCHC 33.3 g/dL (28.0-37.0); MPV 7.4 fl. (7.2-11.1); RBC 4.06 mil/uL (4.20-5.00); RDW-CV 14.3 % (10.5-14.5); WBC 7.6 thou/uL (4.0-11.0)
[2020-10-07 04:31] LABS: CALCIUM 9.5 mg/dL (8.5-10.1); CREATININE 1.2 mg/dL (0.6-1.3); POTASSIUM 4.1 mmol/L (3.5-5.1)
[2020-10-07 07:50] VITALS: BP 157/53
[2020-10-07 12:00] VITALS: BP 118/55
[2020-10-07 16:08] VITALS: BP 144/55
[2020-10-07 20:00] VITALS: BP 140/59
[2020-10-08] VITALS (7 sets, daily range): BP systolic 79–166; BP diastolic 38–75
[2020-10-08 04:15] LABS: HEMOGLOBIN 14.8 gm/dL (12.0-15.0); MCH 33.5 pg (26.0-34.0); MCHC 34.4 g/dL (28.0-37.0); MCV 97.2 fL (80.0-100.0); MPV 7.7 fl. (7.2-11.1); RBC 4.42 mil/uL (4.20-5.00); RDW-CV 14.3 % (10.5-14.5); WBC 6.2 thou/uL (4.0-11.0)
[2020-10-08 04:21] LABS: CALCIUM 9.7 mg/dL (8.5-10.1); CREATININE 1.1 mg/dL (0.6-1.3); INR 2.4; POTASSIUM 4.1 mmol/L (3.5-5.1); PROTIME 24.3 Seconds (9.20-11.50)
--- NOTE | 2020-10-08 15:28 | 2DMMODE ---
[place] [address] 2 D/M-MODE ECHOCARDIOGRAM Name: LIS DINERO Real Room: [address] IN [facility]#: [id number] Admission: 10/06/20 Attend Phys: Jazzy Escobar Discharge: Date of : 41 Date of Service: 10/08/20 1528 Report #: [id number] THIS REPORT FOR: cc: Cleveland Monte MD, Christopher MD Liston, Michael J. MD [facility] ~ APPROVED REPORT Study performed: 10/08/2020 13:49:09 EXAM: Comprehensive 2D, Doppler, and color-flow Echocardiogram Patient Location: In-Patient Room #: [facility] Status: routine BSA: 1.57 HR: 70 bpm BP: 106/60 mmHg Other Information Study Quality: Good Indications Congestive Heart Failure 2D Dimensions IVSd: 8.40 (7-11mm) LVOT Diam: 23.70 (18-24mm) LVDd: 38.13 mm PWd: 8.19 (7-11mm) Ascending Ao: 29.26 (22-36mm) LVDs: 19.46 (25-40mm) Volumes Left Atrial Volume (Systole) LA ESV Index: 43.10 mL/m2 Aortic Valve AoV Peak Francis.: 1.11 m/s AO Peak Gr.: 4.89 mmHg LVOT Max P.84 mmHg AO Mean Gr.: 3.27 mmHg LVOT Mean P.42 mmHg LVOT Max V: 0.84 m/s AO V2 VTI: 19.75 cm LVOT Mean V: 0.55 m/s EMILY (VTI): 4.35 cm2 LVOT V1 VTI: 19.45 cm Mitral Valve E/A Ratio: 3.76 [place] [address] 2 D/M-MODE ECHOCARDIOGRAM Name: LIS DINERO Room: [address] [facility].#: [id number] Admission: 10/06/20 Attend Phys: Jazzy Escobar Discharge: Date of : 41 Date of Service: 10/08/20 1528 Report #: [id number] MV Decel. Time: 200.39 ms MV E Max Francis.: 1.02 m/s MV PHT: 58.11 ms MVA (PHT): 3.79 cm2 TDI E/Lateral E': 6.80 E/Medial E': 11.33 Medial E' Francis.: 0.09 m/s Lateral E' Francis.: 0.15 m/s Pulmonary Valve PV Peak Francis.: 1.14 m/s PV Peak Gr.: 5.21 mmHg Tricuspid Valve RAP Estimate: 5.00 mmHg TR Peak Gr.: 34.32 mmHg RVSP: 39.00 mmHg PA Pressure: 39.00 mmHg Left Ventricle The left ventricle is normal size. There is normal LV segmental wall motion. There is normal left ventricular wall thickness. Left ventricular systolic function is normal. LVEF is 60-65%. Right Ventricle Right ventricle is mildly dilated. The right ventricular systolic function is normal. Pacemaker lead is present in the right ventricle. Atria Left atrium is moderately dilated. Right atrium is moderately dilated. Aortic Valve Mild aortic valve sclerosis. No aortic regurgitation is present. There is no aortic valvular stenosis. Mitral Valve The mitral valve is normal in structure. Trace mitral regurgitation. No evidence of mitral valve stenosis. Tricuspid Valve The tricuspid valve is normal in structure. Moderate tricuspid regurgitation. Mild to moderate pulmonary hypertension. The RVSP is 40-45 mmHg. Pulmonic Valve The pulmonary valve is normal in structure. There [place] [address] 2 D/M-MODE ECHOCARDIOGRAM Name: LIS DINERO Room: [address] IN [facility]#: [id number] Admission: 10/06/20 Attend Phys: Jazzy Escobar Discharge: Date of : 41 Date of Service: 10/08/20 1528 Report #: [id number] valvular regurgitation. Great Vessels The aortic root is normal in size. IVC is normal in size and collapses >50% with inspiration. Pericardium There is no pericardial effusion. <Conclusion> The left ventricle is normal size. There is normal left ventricular wall thickness. Left ventricular systolic function is normal. LVEF is 60-65%. Pacemaker lead is present in the right ventricle. Right ventricle is mildly dilated. Left atrium is moderately dilated. Right atrium is moderately dilated. Mild aortic valve sclerosis. Trace mitral regurgitation. Moderate tricuspid regurgitation. Mild to moderate pulmonary hypertension. The RVSP is 40-45 mmHg. IVC is normal in size and collapses >50% with inspiration. <ELECTRONICALLY SIGNED> By: Kayode Avitia MD, FACC 10/08/20 1528 1528 1528 Kayode Avitia MD, FACC /INF
[2020-10-09] VITALS: BP 147/77
[2020-10-09 04:00] VITALS: BP 138/25
[2020-10-09 05:23] LABS: INR 2.8; PROTIME 28.2 Seconds (9.20-11.50)
[2020-10-09 07:35] VITALS: BP 143/67
[2020-10-09 12:00] VITALS: BP 143/47
[2020-10-09 16:00] VITALS: BP 130/73
[2020-10-09 20:00] VITALS: BP 135/66
[2020-10-10 04:05] LABS: INR 3.5; PROTIME 34.8 Seconds (9.20-11.50)
[2020-10-10 07:45] VITALS: BP 144/85
[2020-10-10] MEDS ORDERED: DOXYCYCLINE 10100 MG PO (08:15)
[2020-10-10] MEDS ORDERED: PROTONIX40 M2 PO (08:15)
[2020-10-10] MEDS ORDERED: PREDNISONE 10 M10 MG PO (08:15)
--- NOTE | 2020-10-10 09:50 | CON ---
[address] [address] CONSULTATION Name: LIS DINERO Room: [address] IN .R.#: [id number] Admission: 10/06/20 Attend Phys: Benito Santos Discharge: Date of : 41 Report #: [id number] THIS REPORT FOR: cc: Cleveland Monte MD, Christopher MD Blick,Ibrahima Curiel MD [facility] ~ DOC #: [id number] cc: MD Ibrahima Funez MD [facility] DATE OF CONSULTATION: 10/07/2020 CARDIOLOGY CONSULTATION HISTORY OF PRESENT ILLNESS: The patient is a 75-year-old single white female who I was asked to see in the hospital today after she complained to being short of breath. The patient has an extensive and complicated past medical history. She previously smoked a pack of cigarettes a day for almost 40 years. Fortunately, she quit smoking 7 years ago. She has a history of COPD and has been on home oxygen in the past. She currently has a nebulizer. She actually has been intubated in the past. She has not been hospitalized for 3 years. Her activity is very limited. She notes for the past several days, she has had increasing shortness of breath. She has been coughing and had some swelling of her feet. She finally came to the hospital yesterday and was admitted for further evaluation and treatment. She does note occasional chest tightness, although it is nonexertional. It occurs when she lies down. She apparently had a stress test years ago. She has no history of CAD. She does have a history of atrial fibrillation. She previously was cardioverted at [facility], went back in atrial fibrillation. She apparently had attempted ablation in the past, it was unsuccessful in [place]. She subsequently had a pacemaker ____ slow rates of atrial fibrillation in 2015. She has been chronically anticoagulated. Echocardiogram last year, showed an ejection fraction of 60%. She has been chronically anticoagulated, has her INR checked frequently. Her pacemaker was checked from home using a transmitter. She denies recent palpitations, syncope. She denied a history of COVID-19 and has received both doses of vaccine. PAST SURGICAL HISTORY: Significant for appendectomy, back surgery, cataract extraction, cholecystectomy. She has had a previous thoracentesis, tonsillectomy. PAST MEDICAL HISTORY: She has a history of hypertension, hyperlipidemia. MEDICATIONS: At home includes Bumex for edema, Neurontin for arthritis, Synthroid, metoprolol, Crestor, spironolactone, Zanaflex, [place] [address] CONSULTATION Name: LIS DINERO Real Room: [address] .R.#: [id number] Admission: 10/06/20 Attend Phys: Benito Santos Discharge: Date of : 41 Report #: [id number] ALLERGIES: SHE HAS A PREVIOUS INTOLERANCE TO CODEINE AND SULFA DRUGS. FAMILY HISTORY: Her grandfather of heart attack. SOCIAL HISTORY: She is . She used to live in [place], now lives in [place] near her family members. She lives by herself. Quit smoking 7 years ago. No alcohol abuse. REVIEW OF SYSTEMS: No history of a stroke, liver disease. She has chronic kidney disease. She is followed by Nephrology. No cancer, no psychiatric illness. No chronic skin condition. She does have arthritis in her knees. PHYSICAL EXAMINATION: GENERAL: Revealed an elderly, frail-appearing female, lying in bed. She appeared in no distress. VITAL SIGNS: She had a blood pressure 130/60, pulse 70, she is afebrile. HEENT: She was anicteric. Conjunctivae pink. Mucosa is moist. NECK: Veins not appear distended. No carotid bruits. CHEST: Coarse breath sounds bilaterally. CARDIOVASCULAR: Regular rate and rhythm. No significant murmur. ABDOMEN: Soft. EXTREMITIES: No pitting edema. Dorsalis pedis pulse cannot be palpated. SKIN: Cool and dry. NEUROLOGIC: Nonfocal. DIAGNOSTIC STUDIES: Her ECG on admission showed atrial fibrillation with predominantly ventricular paced rhythm. Her workup, she had an echocardiogram done in 2019 that showed ejection fraction of 60%, biatrial enlargement, aortic sclerosis, mild mitral regurgitation, moderate tricuspid insufficiency. There was evidence of mild pulmonary hypertension. Her workup, she had a portable chest x-ray in the Emergency Room yesterday that showed atelectasis, interstitial prominence, cardiomegaly, otherwise clear lung huggins. LABORATORY DATA: Her lab work, sodium 140, creatinine 1.2. Troponin was not drawn. Her BNP 3474. Her INR was 3.2. White blood cell count 7.6, hematocrit 39.8. Her COVID antigen stat test was negative. Urinalysis was negative for protein, 1+ leukocytes. IMPRESSION AND RECOMMENDATIONS: 1. Shortness of breath. Suspect secondary to chronic obstructive pulmonary disease. 2. Chronic bronchitis. 3. Edema. Suspect cor pulmonale. Continue Bumex. 4. Atrial fibrillation. I will continue chronic anticoagulation[place] [address] CONSULTATION Name: LIS DINERO Room: [address]#: [id number] Admission: 10/06/20 Attend Phys: Benito Santos Discharge: Date of : 41 Report #: [id number] 2-3. 5. Previous pacemaker insertion. The patient predominantly ventricular paced. 6. Hypertension. The patient is on a beta harmony. 7. Hyperlipidemia. The patient is on a statin drug. 8. Chronic kidney disease. 9. Previous tobacco abuse. Fortunately, the patient no longer smokes. Ibrahima Sloan MD [facility] KAYLIN/CORDELIA/DAISY <ELECTRONICALLY SIGNED> By: Ibrahima Sloan MD, [facility] 10/10/20 0950 1414 1917Daisabel Sloan MD, [facility] /nt
[2020-10-10 10:16] VITALS: BP 144/85
[2020-10-10 11:46] VITALS: BP 144/85
== END 2020-10-10 11:40 | disposition home health service (06) | DRG 177 ==
LOC: M.ERS 07:57 → M.2W 09:31 → M.TBA-ER 09:31 → M.2W 13:44 → M.ORTHSURG 10-09 19:28
PROVIDERS: Emergency Medicine; Internal Medicine; Internal Medicine Cardiovascular Disease; ADMIT Internal Medicine; ATTEND Internal Medicine
DX: J15.6 Pneumonia due to other Gram-negative bacteria (principal); I50.33 Acute on chronic diastolic (congestive) heart failure; I48.11 Longstanding persistent atrial fibrillation; I13.0 Hypertensive heart and chronic kidney disease with heart failure and stage 1 through stage 4 chronic kidney disease, or unspecified chronic kidney disease; J44.1 Chronic obstructive pulmonary disease with (acute) exacerbation; J44.0 Chronic obstructive pulmonary disease with (acute) lower respiratory infection; G62.9 Polyneuropathy, unspecified; E87.5 Hyperkalemia; E78.5 Hyperlipidemia, unspecified; N18.9 Chronic kidney disease, unspecified; Z20.822 Contact with and (suspected) exposure to COVID-19; Z95.0 Presence of cardiac pacemaker; Z90.49 Acquired absence of other specified parts of digestive tract; Z79.899 Other long term (current) drug therapy; Z88.2 Allergy status to sulfonamides; Z88.5 Allergy status to narcotic agent; Z87.891 Personal history of nicotine dependence; Z98.49 Cataract extraction status, unspecified eye

== ENCOUNTER → 2020-11-04 | Outpatient (CLI) | payer MEDICARE, OTHER ==
[~2020-11-04] MED LIST changes: +DOXYCYCLINE 10100 MG PO; +PROTONIX40 M2 PO
[2020-11-04 14:39] LABS: CALCIUM 9.6 mg/dL (8.5-10.1); CREATININE 1.4 mg/dL (0.6-1.3); POTASSIUM 4.2 mmol/L (3.5-5.1)
== END ==
LOC: M.LAB 13:48
PROVIDERS: ATTEND Nurse Practitioner
DX: I50.9 Heart failure, unspecified (principal); N18.9 Chronic kidney disease, unspecified

== ENCOUNTER → 2021-03-04 | Outpatient (CLI) | payer MEDICARE, OTHER ==
[2021-03-04 13:05] LABS: HEMATOCRIT 37.5 % (37.0-47.0); HEMOGLOBIN 12.4 gm/dL (12.0-15.0); MCH 31.9 pg (26.0-34.0); MCHC 33.1 g/dL (28.0-37.0); MCV 96.3 fL (80.0-100.0); MPV 7.8 fl. (7.2-11.1); RBC 3.9 mil/uL (4.20-5.00); WBC 6.2 thou/uL (4.0-11.0)
[2021-03-04 13:09] LABS: URINE BILIRUBIN NEGATIVE (Negative); URINE BLOOD NEGATIVE (Negative); URINE CLARITY CLEAR; URINE COLOR YELLOW; URINE GLUCOSE-RANDOM NEGATIVE (Negative); URINE KETONES NEGATIVE (Negative); URINE LEUKOCYTES-REFLEX 1+ (Negative); URINE NITRITE-REFLEX NEGATIVE (Negative); URINE PROTEIN NEGATIVE (Negative); URINE UROBILINOGEN 0.2 E.U./dl (0.2-1.0)
[2021-03-04 13:16] LABS: BACTERIA-REFLEX 1-9 Few /HPF (None Seen); CASTS None Seen /LPF (None Seen); CRYSTALS None Seen /LPF (None Seen); MUCUS 0-3 Light strn/LPF (None Seen); SQUAMOUS 0-3 Few /LPF (0-3); URINE RBC 0-2 Rare /HPF (0-2); URINE WBC-REFLEX 0-5 Rare /HPF (0-5)
[2021-03-04 13:19] LABS: ALBUMIN 3.7 g/dL (3.4-5.0); CALCIUM 9.6 mg/dL (8.5-10.1); CREATININE 1.6 mg/dL (0.6-1.3); POTASSIUM 3.5 mmol/L (3.5-5.1)
[2021-03-04 13:24] LABS: CALCIUM 9.4 mg/dL (8.5-10.1); CREATININE 1.6 mg/dL (0.6-1.3); PHOSPHORUS* 4.2 mg/dL (2.5-4.9)
== END ==
LOC: M.LAB 12:04
PROVIDERS: ATTEND Internal Medicine Nephrology
DX: N18.30 Chronic kidney disease, stage 3 unspecified (principal); N25.0 Renal osteodystrophy

== ENCOUNTER 2021-05-13 16:34 | Emergency (ER) | payer MEDICARE, OTHER ==
[~2021-05-13] VITALS: Ht 162.6 cm; Wt 54.4 kg
[2021-05-13 16:36] VITALS: BP 104/51
== END 2021-05-13 21:31 | disposition left against medical advice (07) ==
LOC: M.ERS 16:34
DX: M54.59 Other low back pain (principal); Z53.21 Procedure and treatment not carried out due to patient leaving prior to being seen by health care provider